=== PATIENT | female | born 1955 | race American Indian/Alaskan Native ===

== ENCOUNTER 2016-04-17 11:49 | Outpatient (CLI) | payer MEDICARE ==
--- NOTE | 2016-04-17 14:05 | XRay Report ---
The left index finger: AP and lateral views demonstrates a mild degree of soft tissue laceration along the lateral and palmar aspect of the digit. There is mild swelling. No foreign body identified. The bony structures are unremarkable. Impression: Soft tissue injury. No foreign body identified.
== END 2016-04-17 11:50 | disposition home or self-care (01) ==
LOC: XRAY 11:49
PROVIDERS: ATTEND Orthopaedic Surgery
DX: S60.45 Superficial foreign body of fingers (principal)

== ENCOUNTER 2016-04-28 10:57 | Outpatient (CLI) | payer MEDICARE ==
[2016-04-28] MEDS ORDERED: XYLOCAINE TOPICAL 2% TP ONE ×2 (11:36→13:50)
== END 2016-04-28 10:58 | disposition home or self-care (01) ==
LOC: WOUND 10:57
PROVIDERS: ATTEND Orthopaedic Surgery
DX: L97.811 Non-pressure chronic ulcer of other part of right lower leg limited to breakdown of skin (principal); I73.9 Peripheral vascular disease, unspecified; I10 Essential (primary) hypertension; Z87.891 Personal history of nicotine dependence

== ENCOUNTER 2016-05-12 11:05 | Outpatient (CLI) | payer MEDICARE ==
[2016-05-12] MEDS ORDERED: XYLOCAINE TOPICAL 2% TP ONE ×3 (11:21→13:52)
[2016-05-12] MEDS ORDERED: XYLOCAINE TOPICAL 2% ONE (11:36)
[2016-05-12] MEDS ORDERED: SILVER NITRATE TP ONE ×2 (12:52→13:52)
== END 2016-05-12 11:06 | disposition home or self-care (01) ==
LOC: WOUND 11:05
PROVIDERS: ATTEND Internal Medicine
DX: I87.311 Chronic venous hypertension (idiopathic) with ulcer of right lower extremity (principal); L97.811 Non-pressure chronic ulcer of other part of right lower leg limited to breakdown of skin; L02.512 Cutaneous abscess of left hand; F06.4 Anxiety disorder due to known physiological condition; I87.2 Venous insufficiency (chronic) (peripheral); Z87.891 Personal history of nicotine dependence
CPT/HCPCS: 88304

== ENCOUNTER 2016-05-15 10:41 | Outpatient (CLI) | payer MEDICARE ==
[2016-05-15] MEDS ORDERED: NACL 0.9% 500 ML IR ONE (10:50)
[2016-05-15] MEDS ORDERED: NACL 0.9% IR ONE (14:28)
== END 2016-05-15 10:42 | disposition home or self-care (01) ==
LOC: WOUND 10:41
PROVIDERS: ATTEND Internal Medicine
DX: I87.311 Chronic venous hypertension (idiopathic) with ulcer of right lower extremity (principal); L97.811 Non-pressure chronic ulcer of other part of right lower leg limited to breakdown of skin; I87.2 Venous insufficiency (chronic) (peripheral); I10 Essential (primary) hypertension; F06.4 Anxiety disorder due to known physiological condition; I73.9 Peripheral vascular disease, unspecified; Z87.891 Personal history of nicotine dependence
CPT/HCPCS: 29581

== ENCOUNTER 2016-05-19 11:14 | Outpatient (CLI) | payer MEDICARE ==
[2016-05-19] MEDS ORDERED: XYLOCAINE TOPICAL 2% TP ONE (12:07)
[2016-05-19] MEDS ORDERED: NACL 0.9% 500 ML IR ONE (12:08)
[2016-05-19] MEDS ORDERED: NACL 0.9% IR PRN (15:10)
== END 2016-05-19 11:15 | disposition home or self-care (01) ==
LOC: WOUND 11:14
PROVIDERS: ATTEND Internal Medicine
DX: I87.311 Chronic venous hypertension (idiopathic) with ulcer of right lower extremity (principal); L97.811 Non-pressure chronic ulcer of other part of right lower leg limited to breakdown of skin; I87.2 Venous insufficiency (chronic) (peripheral); I10 Essential (primary) hypertension; F06.4 Anxiety disorder due to known physiological condition; I73.9 Peripheral vascular disease, unspecified; Z87.891 Personal history of nicotine dependence
CPT/HCPCS: 99213; G0463

== ENCOUNTER 2016-05-26 11:40 | Outpatient (CLI) | payer MEDICARE ==
[2016-05-26] MEDS ORDERED: XYLOCAINE TOPICAL 4% TP ONE ×2 (12:25→12:46)
[2016-05-26] MEDS ORDERED: SILVER NITRATE TP ONE (12:57)
== END 2016-05-26 11:41 | disposition home or self-care (01) ==
LOC: WOUND 11:40
PROVIDERS: ATTEND Internal Medicine
DX: I87.311 Chronic venous hypertension (idiopathic) with ulcer of right lower extremity (principal); L97.811 Non-pressure chronic ulcer of other part of right lower leg limited to breakdown of skin; F06.4 Anxiety disorder due to known physiological condition; I73.9 Peripheral vascular disease, unspecified; Z87.891 Personal history of nicotine dependence

== ENCOUNTER 2017-02-23 14:02 | Emergency (ER) | payer MEDICARE ==
--- NOTE | 2017-02-23 14:20 | Emergency Department Report ---
Chief Complaint: Extremity Injury, Lower Stated Complaint: RT FOOT PAIN Time Seen by Provider: 02/23/17 14:18 - HPI History of Present Illness: Patient here reports that she is having in her right leg and foot pain that is 10 out of 10. Patient states that she has venous stasis ulcers and poor circulation and she's been having new ulcers on her foot and her leg that is not healing. She said her vascular surgeon is Dr. Emerson and her plastic surgeon is Dr. Elias [place] who did skin graft on her and November 2016. Patient says she has not taken her temperature but she feels like she has chills. She says she's been taking ibuprofen and it is not helping. Patient states that she also went to wound care. She said now she lost [employer] because her insurance ran out. She has a history of high blood pressure are none blood pressure medication blood pressure is 164/106 and she denies any shortness of breath or chest pain. Patient has history of smoking - ROS Review of Systems: All systems are negative unless stated in HPI above - Exam Vital Signs: Vital Signs 02/23/17 14:07 Temperature 98.0 F Pulse Rate 77 Respiratory 17 Rate Blood Pressure 164/106 O2 Sat by Pulse 100 Oximetry Physical Exam: General: This is a 61-year-old female well-nourished well-developed in no acute distress Extremity: Patient with discolored area from her right mid leg to her foot. Ulcers noted to dorsal aspect of anterior foot with scabbing. Patient has ulcers to mid to distal right leg. Areas are draining. Right DP and PT palpable but faint. Her foot feels warm. Pigmentation of her foot is darker than her usual pigmentation. No swelling noted. And she denies any MSE screening note: Focused history and physical exam performed. Due to findings the following was ordered: ED Medical Decision Making - Medical Decision Making MDM: Patient screened by provider in triage area. Appropriate protocol initiated and patient to be seen in main ED by ED Disposition for MSE Condition: Stable
[2017-02-23 15:05] LABS: Basophils % (Auto) 1.2 % (0.0-1.8); Eosinophils % (Auto) 3.1 % (0.0-4.3); Hematocrit 37.7 % (30.3-42.9); Hemoglobin 12.1 gm/dl (10.1-14.3); Mean Corpuscular HGB Conc 32 % (30-34); Mean Corpuscular Hemoglobin 29 pg (28-32); Mean Corpuscular Volume 89 fl (79-97); Platelet Count 446 K/mm3 (140-440); Red Blood Count 4.25 M/mm3 (3.65-5.03); Red Cell Distribution Width 14.9 % (13.2-15.2); White Blood Count 6.6 K/mm3 (4.5-11.0)
[2017-02-23 15:16] LABS: INR 1.01 (0.87-1.13)
[2017-02-23 15:17] LABS: Partial Thromboplastin Time 27.5 Sec. (24.2-36.6)
[2017-02-23 15:18] LABS: Alanine Aminotransferase 7 units/L (7-56); Albumin 4.4 g/dL (3.9-5); Albumin/Globulin Ratio 1.3 %; Alkaline Phosphatase 119 units/L (35-129); Anion Gap 21 mmol/L; BUN/Creatinine Ratio 17; Blood Urea Nitrogen 19 mg/dL (7-17); Calcium 9.4 mg/dL (8.4-10.2); Carbon Dioxide 19 mmol/L (22-30); Chloride 103.7 mmol/L (98-107); Glucose 83 mg/dL (65-100); Potassium 3.3 mmol/L (3.6-5.0); Sodium 140 mmol/L (137-145); Total Protein 7.8 g/dL (6.3-8.2)
--- NOTE | 2017-02-23 15:55 | XRay Report ---
Right foot 3 views. Findings: Right foot pain with cutaneous ulcerations. Findings: There is severe diffuse osteopenia. No fractures or dislocations are seen. There is no osteolytic destruction or other signs of osteomyelitis. There is no soft tissue swelling. Arthritic changes are seen at the tarsometatarsal joints. Impression: Diffuse osteopenia and arthritic changes, with no acute findings.
[2017-02-23] MEDS ORDERED: TRIPLE ANTIBIOTIC TP ONE (21:19)
[2017-02-23] MEDS ORDERED: DILAUDID IM ONE (22:51)
[2017-02-23] MEDS ORDERED: KEFLEX PO ONE (22:51)
--- NOTE | 2017-02-23 23:53 | Emergency Department Report ---
HPI - General Chief Complaint: Extremity Injury, Lower Time Seen by Provider: 02/23/17 14:18 - HPI HPI: The patient is a 61-year-old female with a history of chronic venous insufficiency and stasis ulcers of the right lower extremity, presents for evaluation of pain to the right leg. The patient reports recurrence of right lower extremity pain for the past 3 days, constant since onset, currently 9/10 in severity, throbbing in quality, exacerbated with ambulation. She denies trauma or new injuries to the right lower extremity. She states that she received dressing changes by wound care nurse one day ago. She denies fever, trauma to the right lower extremity, Drainage or discharge, paresthesia, or loss of motor function. ED Past Medical Hx - Past Medical History Hx Hypertension: Yes Hx Congestive Heart Failure: No Hx Diabetes: No Hx Asthma: No Hx COPD: No Hx HIV: No Additional medical history: Leg ulcer with vascular surgery, peripheral vascular disease - Surgical History Additional Surgical History: tonsillectomy; vascular surgery to RLE - Social History Smoking Status: Never Smoker Substance Use Type: None - Medications Home Medications: Home Medications Medication Instructions Recorded Confirmed Last Taken Type Gabapentin [Neurontin] 300 mg PO BID #60 tablet 05/03/15 05/22/16 1 Month Ago Rx Lisinopril [Zestril TAB] 40 mg PO QDAY 10/06/15 05/22/16 4 Days Ago History amLODIPine [Norvasc] 10 mg PO DAILY 10/06/15 05/22/16 4 Days Ago History Carvedilol [Coreg] 6.25 mg PO BID #60 tablet 12/24/15 05/22/16 Unknown Rx Mirtazapine [Remeron] 15 mg PO QHS #14 tablet 12/24/15 05/22/16 Unknown Rx Aspirin EC [Aspirin Enteric Coated 81 mg PO QDAY #30 tablet 05/23/16 Unknown Rx TAB] Clopidogrel [Plavix] 75 mg PO QDAY #30 tablet 05/23/16 Unknown Rx Famotidine [Pepcid] 20 mg PO BID #60 tablet 05/23/16 Unknown Rx HYDROcodone/APAP 7.5-325 [[place] 1 each PO Q6HR PRN #14 tablet 02/23/17 Unknown Rx 7.5-325 mg TAB] Sulfamethoxazole/Trimethoprim 1 each PO Q12HR #14 tablet 02/23/17 Unknown Rx [Bactrim DS TAB] ED Review of Systems ROS: Stated complaint: RT FOOT PAIN Other details as noted in HPI Constitutional: denies: fever ENT: denies: throat or neck pain Respiratory: denies: cough, shortness of breath Cardiovascular: denies: chest pain Endocrine: denies unexplained weight loss or gain Gastrointestinal: denies: abdominal pain, nausea Genitourinary: denies: dysuria Musculoskeletal: reports right leg pain denies: leg swelling Skin: denies: rash Neurological: denies: headache Hematological/Lymphatic: denies: easy bleeding or easy bruising Psych: denies sadness or hopelessness Physical Exam - Physical Exam Vital Signs: Vital Signs 02/23/17 02/23/17 14:07 20:30 Temperature 98.0 F 98.0 F Pulse Rate 77 67 Respiratory 17 20 Rate Blood Pressure 164/106 Blood Pressure 170/100 [Left] O2 Sat by Pulse 100 98 Oximetry Physical Exam: General: well-nourished, well-developed, no acute distress Head: Normocephalic, atraumatic Eyes: normal sclera ENT: Mucous membranes are pink and moist Neck: trachea midline, neck supple Respiratory: Breath sounds equal bilaterally, no wheezing, rales, or rhonchi Cardio: S1 and S2 present, no murmurs, rubs, gallops, capillary refill is brisk Abdomen: Normoactive bowel sounds, soft abdomen, no tenderness Musc: multiple large ruperficial ulcers of distal right lower leg present, surrounding tissue tender to palpation, mild clear drainage present to ulcer, no purulent drainage, no active bleeding, no fluctuance, No pitting edema, distal pulses in the right foot and tachycardia and brisk, capillary refill brisk in all toes, no sensation deficit in the foot or toes, no motor deficit in the foot or toes Neuro: no facial drooping, normal speech Psych: Normal affect ED Course Vital Signs 02/23/17 02/23/17 14:07 20:30 Temperature 98.0 F 98.0 F Pulse Rate 77 67 Respiratory 17 20 Rate Blood Pressure 164/106 Blood Pressure 170/100 [Left] O2 Sat by Pulse 100 98 Oximetry ED Medical Decision Making - Lab Data Result diagrams: 02/23/17 14:46 02/23/17 14:46 - Medical Decision Making The patient was seen and examined by myself. The patient is placed on a deckhand sponge boat and continuous pulse ox. On initial evaluation, the patient was found to be in no distress. Evaluation orders were placed. The patient is given IM pain medicine. X-ray of the right lower extremity and foot is negative for signs suggestive of acute infection, and also negative for acute fractures or dislocations. The patient was reevaluated and reported that their symptoms were markedly improved. The patient is stable for discharge with outpatient follow-up. The patient is given follow-up and return instructions. The patient expressed understanding and agreed with the plan. The patient is discharged in stable condition. Critical care attestation.: If time is entered above; I have spent that time in minutes in the direct care of this critically ill patient, excluding procedure time. ED Disposition Clinical Impression: Hypertensive urgency, Pain in right lower leg Ulcer of right lower extremity Qualifiers: Non-pressure ulcer stage: limited to breakdown of skin Qualified Code(s): L97.911 - Non-pressure chronic ulcer of unspecified part of right lower leg limited to breakdown of skin Disposition: DC-01 TO HOME OR SELFCARE Is pt being admited?: No Does the pt Need Aspirin: No Condition: Stable Instructions: Chronic Hypertension (ED), Stasis Dermatitis (ED), Pressure Ulcer (ED), Acute Wound Care (ED) Prescriptions: HYDROcodone/APAP 7.5-325 [[place] 7.5-325 mg TAB] 1 each PO Q6HR PRN #14 tablet PRN Reason: Pain Sulfamethoxazole/Trimethoprim [Bactrim DS TAB] 1 each PO Q12HR #14 tablet Referrals: LISA DE LEON MD [Primary Care Provider] - 3-5 Days KERRY GIRARD MD [Staff Physician] - 3-5 Days Time of Disposition: 23:46
[2017-02-24 00:13] VITALS: BP 156/98
--- NOTE | 2017-02-24 07:15 | XRay Report ---
Right tibia fibula: History: Right tibia fibula ulcer and pain. Findings: There is generalized osteopenia. No periosteal reaction or lytic lesion. No fracture. No soft tissue calcification. Impression: No evidence of periosteal reaction or lytic lesion.
== END 2017-02-24 00:11 | disposition home or self-care (01) ==
LOC: ED 14:02
DX: L97.911 Non-pressure chronic ulcer of unspecified part of right lower leg limited to breakdown of skin (principal); M79.604 Pain in right leg; I10 Essential (primary) hypertension
CPT/HCPCS: 36415; 73590; 73630; 80053; 85025; 85610; 85730; 96372; 99284; J1170; A6250

== ENCOUNTER 2017-03-10 17:20 | Inpatient (IN) | payer MEDICARE ==
[2017-03-10] MEDS ORDERED: PNEUMOVAX 23 IM ONE (18:39)
[2017-03-10] MEDS: NORVASC PO SCH (21:03)
[2017-03-10] MEDS: COZAAR PO SCH (21:03)
[2017-03-10] MEDS: DILAUDID IV PRN (22:34)
[2017-03-10] MEDS ORDERED: MILK OF MAGNESIA PO PRN (23:05)
[2017-03-10] MEDS ORDERED: TYLENOL PO PRN (23:05)
[2017-03-10] MEDS ORDERED: DULCOLAX PR PRN (23:05)
[2017-03-10] MEDS ORDERED: ZOFRAN IV PRN (23:05)
--- NOTE | 2017-03-10 23:05 | Event Note ---
Date: 03/10/17
[2017-03-10 23:40] LABS: Basophils % (Auto) 1.1 % (0.0-1.8); Hematocrit 32.7 % (30.3-42.9); Hemoglobin 10.6 gm/dl (10.1-14.3); Mean Corpuscular HGB Conc 33 % (30-34); Mean Corpuscular Hemoglobin 29 pg (28-32); Mean Corpuscular Volume 88 fl (79-97); Platelet Count 452 K/mm3 (140-440); Red Blood Count 3.71 M/mm3 (3.65-5.03); Red Cell Distribution Width 14.8 % (13.2-15.2); White Blood Count 9.5 K/mm3 (4.5-11.0)
[2017-03-10] MEDS ORDERED: APRESOLINE IV ONE (23:47)
[2017-03-10] MEDS: CLEOCIN 900 MG/50 mL 900 MG/50 ML BAG IV SCH (23:58)
[2017-03-10] MEDS: ZOFRAN IV PRN (23:59)
[2017-03-10] MEDS: NACL 0.9% 1000 ML 1,000 ML IV SCH (23:59)
[2017-03-11 00:05] LABS: Alanine Aminotransferase 7 units/L (7-56); Albumin 3.8 g/dL (3.9-5); Albumin/Globulin Ratio 1.2 %; Alkaline Phosphatase 108 units/L (35-129); Anion Gap 17 mmol/L; BUN/Creatinine Ratio 20; Bilirubin,Total < 0.20 mg/dL (0.1-1.2); Blood Urea Nitrogen 18 mg/dL (7-17); Calcium 8.9 mg/dL (8.4-10.2); Carbon Dioxide 20 mmol/L (22-30); Glucose 88 mg/dL (65-100); Potassium 3.1 mmol/L (3.6-5.0); Sodium 139 mmol/L (137-145)
[2017-03-11] MEDS ORDERED: APRESOLINE IV PRN (00:30)
[2017-03-11] MEDS: NORCO 7.5/325 PO PRN ×4 (04:32→23:51)
[2017-03-11] MEDS ORDERED: K-DUR PO ONE ×2 (06:47→10:00)
[2017-03-11] MEDS ORDERED: MOTRIN PO PRN (06:49)
[2017-03-11 06:51] LABS: Eosinophils % (Auto) 1.9 % (0.0-4.3); Hemoglobin 11.2 gm/dl (10.1-14.3); Mean Corpuscular HGB Conc 32 % (30-34); Mean Corpuscular Hemoglobin 29 pg (28-32); Mean Corpuscular Volume 90 fl (79-97); Platelet Count 473 K/mm3 (140-440); Red Cell Distribution Width 15.3 % (13.2-15.2)
[2017-03-11] MEDS: CLEOCIN 900 MG/50 mL 900 MG/50 ML BAG IV SCH ×3 (07:04→22:22)
[2017-03-11 07:05] LABS: Alanine Aminotransferase 8 units/L (7-56); Albumin/Globulin Ratio 1.3 %; Alkaline Phosphatase 111 units/L (35-129); Anion Gap 22 mmol/L; BUN/Creatinine Ratio 19; Blood Urea Nitrogen 15 mg/dL (7-17); Calcium 9.1 mg/dL (8.4-10.2); Carbon Dioxide 18 mmol/L (22-30); Chloride 105.7 mmol/L (98-107); Glucose 112 mg/dL (65-100); Potassium 3.3 mmol/L (3.6-5.0); Sodium 142 mmol/L (137-145); Total Protein 7.1 g/dL (6.3-8.2)
[2017-03-11] MEDS: DILAUDID IV PRN (07:08)
[2017-03-11] MEDS: COZAAR PO SCH (09:49)
[2017-03-11] MEDS: NORVASC PO SCH (09:49)
[2017-03-11] MEDS: PEPCID PO SCH ×2 (09:49→22:22)
[2017-03-11] MEDS: NEURONTIN PO SCH ×2 (09:49→22:22)
[2017-03-11] MEDS ORDERED: PEPCID PO SCH (10:00)
[2017-03-11] MEDS ORDERED: NON-FORMULARY (Gabapentin [Neurontin] 300 MG) PO SCH (10:00)
--- NOTE | 2017-03-11 10:21 | History and Physical Report ---
CHIEF COMPLAINT: Wounds on the right leg and the foot. HISTORY OF PRESENT ILLNESS: The patient has a wound on the right leg and right foot for 3 weeks, nonhealing. Also, the patient complains of severe pain in the foot and also drainage from the wound on the right foot. The patient has had a skin flap by Dr. Lau. She has a small opening wound on the right leg, it was 3 cm x 3 cm and also a superficial ulcer with some drainage on the dorsum of the right foot, 3 cm x 3 cm with a depth of 0.2 mm. No fever, no chills. PAST MEDICAL HISTORY: Significant for atherosclerosis of the right leg, acute renal failure, hypertension, and atherosclerotic heart disease. PAST SURGICAL HISTORY: Perm-A-Cath placement in 12/2015 and atherectomy and angioplasty, right leg. Atherectomy in 2014 and atherectomy and angioplasty, right leg in 2016. SOCIAL HISTORY: The patient used to smoke, stopped smoking, nondrinker. The patient is legally . FAMILY HISTORY: Mother has cancer. Aunt has vascular problems. ALLERGIES: No known drug allergies. CURRENT MEDICATIONS: Silvadene ointment, [place] 7.5/325 q.i.d. p.r.n., probiotic 250 mg q.i.d. Bactrim and Augmentin recently prescribed, losartan 25 mg once a day, amlodipine 10 mg once a day, and ibuprofen 800 mg 3 times a day. REVIEW OF SYSTEMS: Significant for pain in the right lower extremity secondary to the ulcer and also the right foot pain is about 8/10. Able to walk. Otherwise, review of systems is essentially negative. A 14-point review of systems done. PHYSICAL EXAMINATION: GENERAL: Elderly female, cooperative during examination. VITAL SIGNS: Blood pressure is 172/99 and 176/105, temperature is 98.5, pulse is 64, and respirations are 18. HEENT: Unremarkable. Pupils are equal and reactive. NECK: Supple, no lymphadenopathy, no thyromegaly. LUNGS: Clear to auscultation and percussion. Good air entry. CARDIOVASCULAR: S1, S2 heard. No gallop, no murmur, no rub. Apical impulse in left fifth intercostal space and midclavicular line. ABDOMEN: Soft and benign. No hepatosplenomegaly, no guarding, no rigidity. Hernial orifices are normal. EXTREMITIES: Right leg ulcer on the lateral aspect of the lower part of the calf region just above the lateral malleolus 3 cm x 3 cm also present with a depth of about 2 mm. Also, ulcer present the right foot, 3 cm x 3 cm with a depth of 1 mm. Slight oozing present on both the wounds. CENTRAL NERVOUS SYSTEM: Alert and oriented x 4. SKIN: Other than the wound description is normal. LABORATORY DATA: Significant for white count of 9500, H and H of 10.6 and 32.7, and platelet count of 452,000. Sodium is 139, potassium is 3.1, chloride is 105, bicarb is 20, BUN and creatinine are 18 and 0.9, and albumin is 3.8. ASSESSMENT AND PLAN: 1. Right foot ulcer and right leg ulcer. Wound care and the patient to be started on IV antibiotics. The patient was started on clindamycin 900 mg q.8 h. We will take the help of Infectious Disease. We will consult Dr. Cardenas. 2. Hypertension. Continue carvedilol 6.25 twice a day 3. Peripheral artery disease. The patient is on Plavix 75 mg once a day. Vascular Surgery consult also will be requested. 4. Gastroesophageal reflux disease. Famotidine 20 mg twice a day. 5. Peripheral neuropathy. Continue gabapentin 600 mg twice a day. 6. Deep venous thrombosis prophylaxis, Lovenox 40 mg subcutaneous daily. JOB# [id number] VSM/NTS
--- NOTE | 2017-03-11 10:37 | Event Note ---
Date: 03/11/17 Arterial duplex and noninvasive arterial testing has been ordered. A full consult will be dictated after these are performed.
[2017-03-11] MEDS ORDERED: Fluarix Quad 2017-2018(36 MOS+ IM ONE (12:00)
[2017-03-11] MEDS: ZOFRAN IV PRN ×2 (13:31→22:21)
--- NOTE | 2017-03-11 13:47 | Consultation ---
History of Present Illness - Reason for Consult Consult date: 03/11/17 - History of Present Illness This is a 61-year-old female admitted from our office via Dr. Emerson. Her current complaint is right foot pain, especially upon weightbearing. She said this has been an ongoing issue for several days. In May of this year, she underwent right lower extremity angiography with directional atherectomy and drug coated balloon angioplasty of the right superficial femoral artery. She stated that her wounds improved after the procedure. She denies fevers at home, although she said she has had slight chills every now and then. She feels well otherwise. She is currently on aspirin and Plavix for antiplatelet therapy. Arterial duplex demonstrates largely multiphasic waveforms in all evaluated arteries of the right lower extremity. Additionally, her ankle-brachial index on the right is 0.91 and her toe brachial index is 0.83. Medications and Allergies Allergies Allergy/AdvReac Type Severity Reaction Status Date / Time tramadol AdvReac Unknown Verified 07/05/15 14:55 Home Medications Medication Instructions Recorded Confirmed Last Taken Type Gabapentin [Neurontin] 300 mg PO BID #60 tablet 05/03/15 05/22/16 6 Months Ago Rx ~09/07/16 Lisinopril [Zestril TAB] 40 mg PO QDAY 10/06/15 05/22/16 1 Month Ago History ~02/07/17 amLODIPine [Norvasc] 10 mg PO DAILY 10/06/15 03/10/17 1 Day Ago History ~03/09/17 Carvedilol [Coreg] 6.25 mg PO BID #60 tablet 12/24/15 05/22/16 3 Months Ago Rx ~12/08/16 Mirtazapine [Remeron] 15 mg PO QHS #14 tablet 12/24/15 05/22/16 Unknown Rx Aspirin EC [Aspirin Enteric Coated 81 mg PO QDAY #30 tablet 05/23/16 3 Months Ago Rx TAB] ~12/08/16 Clopidogrel [Plavix] 75 mg PO QDAY #30 tablet 05/23/16 1 Year Ago Rx ~03/10/16 Famotidine [Pepcid] 20 mg PO BID #60 tablet 05/23/16 Unknown Rx HYDROcodone/APAP 7.5-325 [[place] 1 each PO Q6HR PRN #14 tablet 02/23/17 03/10/17 1 Day Ago Rx 7.5-325 mg TAB] ~03/09/17 Sulfamethoxazole/Trimethoprim 1 each PO Q12HR #14 tablet 02/23/17 03/10/17 1 Day Ago Rx [Bactrim DS TAB] ~03/09/17 Ibuprofen [Motrin 800 MG tab] 800 mg PO 03/10/17 2 Days Ago History ~03/08/17 Losartan [Cozaar] 25 mg PO QDAY 03/10/17 03/10/17 1 Day Ago History ~03/09/17 Active Meds: Active Medications Acetaminophen (Tylenol) 650 mg PO Q4H PRN PRN Reason: Pain MILD(1-3)/Fever >100.5/[place] Acetaminophen/Hydrocodone Bitart ([place] 7.5/325) 1 each PO Q6H PRN PRN Reason: Pain, Moderate (4-6) Last Admin: 03/11/17 09:56 Dose: 1 each Amlodipine Besylate (Norvasc) 10 mg PO QDAY [facility] Last Admin: 03/11/17 09:49 Dose: 10 mg Bisacodyl (Dulcolax) 10 mg [place] QDAY PRN PRN Reason: Constipation unrelieved by MOM Famotidine (Pepcid) 20 mg PO BID [facility] Last Admin: 03/11/17 09:49 Dose: 20 mg Gabapentin (Neurontin) 300 mg PO BID [facility] Last Admin: 03/11/17 09:49 Dose: 300 mg Hydralazine HCl (Apresoline) 10 mg IV Q4HR PRN PRN Reason: Increased Blood Pressure Hydromorphone HCl (Dilaudid) 1 mg IV Q4H PRN PRN Reason: Pain , Severe (7-10) Last Admin: 03/11/17 07:08 Dose: 1 mg Sodium Chloride (Nacl 0.9% 1000 Ml) 1,000 mls @ 75 mls/hr IV DIRECT [facility] Last Admin: 03/10/17 23:59 Dose: 75 mls/hr Clindamycin HCl (Cleocin 900 Mg/50 Ml) 900 mg in 50 mls @ 100 mls/hr IV Q8HR CHA PRN Reason: Protocol Last Admin: 03/11/17 13:30 Dose: 100 mls/hr Ibuprofen (Motrin) 800 mg PO Q8H PRN PRN Reason: Pain, Moderate (4-6) Losartan Potassium (Cozaar) 25 mg PO QDAY CHA Last Admin: 03/11/17 09:49 Dose: 25 mg Magnesium Hydroxide (Milk Of Magnesia) 30 ml PO Q4H PRN PRN Reason: Constipation Ondansetron HCl (Zofran) 4 mg IV Q4H PRN PRN Reason: Nausea And Vomiting Last Admin: 03/11/17 13:31 Dose: 4 mg Exam - Constitutional Vitals: Temp Pulse Resp BP Pulse Ox 98.3 F 96 H 18 140/94 96 03/11/17 08:00 03/11/17 08:00 03/11/17 08:00 03/11/17 08:00 03/11/17 08:00 General appearance: Present: no acute distress, well-nourished - EENT Eyes: Present: PERRL ENT: hearing intact, clear oral mucosa - Neck Neck: Present: supple, normal ROM - Respiratory Respiratory effort: normal - Extremities Extremities: normal temperature Extremity abnormal: ulceration (the right dorsalis pedis pulses palpable. On the dorsum of the distal right foot, there is a large ulcerated lesion. It is currently covered in ointment applied by wound care, please refer to file photos for further detail.) Results - Labs CBC & Chem 7: 03/11/17 06:18 03/11/17 06:18 Labs: Abnormal lab results 03/10/17 03/10/17 03/11/17 Range/Units 23:10 23:10 06:18 RDW 15.3 H (13.2-15.2) % Plt Count 452 H 473 H (140-440) K/mm3 [place] % (Auto) 7.9 H (0.0-7.3) % Potassium 3.1 L (3.6-5.0) mmol/L Carbon Dioxide 20 L (22-30) mmol/L BUN 18 H (7-17) mg/dL Glucose (65-100) mg/dL C-Reactive Protein (0.00-1.30) mg/dL Albumin 3.8 L (3.9-5) g/dL 03/11/17 03/11/17 Range/Units 06:18 06:18 RDW (13.2-15.2) % Plt Count (140-440) K/mm3 [place] % (Auto) (0.0-7.3) % Potassium 3.3 L (3.6-5.0) mmol/L Carbon Dioxide 18 L (22-30) mmol/L BUN (7-17) mg/dL Glucose 112 H (65-100) mg/dL C-Reactive Protein 1.50 H (0.00-1.30) mg/dL Albumin (3.9-5) g/dL - Imaging and Cardiology Venous US: report reviewed, image reviewed Assessment and Plan Based on her physical exam and noninvasive arterial evaluation, it is very unlikely that her right foot wound issues are due to insufficient perfusion. The etiology of the wound is uncertain. Evaluation by podiatry and wound care is recommended in order to further advise regarding wound care and determining etiology of this lesion, in light of satisfactory perfusion. Given that she has been afebrile, currently does not have a white count, and her wound does not have a foul odor, infection is less likely. She states she is amenable to outpatient wound care, and this is being set up currently. In the meantime, she should continue her antiplatelet therapy.
--- NOTE | 2017-03-11 13:56 | Consultation ---
History of Present Illness - Reason for Consult Consult date: 03/11/17 wound Requesting physician: MOISES SANCHEZ - History of Present Illness 61 years old female with history of PVD and right leg venous insufficiency with right leg chronic wound which required skin grafting back in June 2016, she underwent right lower extremity angiography with directional atherectomy and drug coated balloon angioplasty of the right superficial femoral artery, after those procedures wounds healed; admitted on 03/10/17 due to new ulceration on the right dorsal forefoot. Denies any trauma or injury. She noticed a skin break. Ulceration started draining foul-smelling secretion. She has not been able to bear weight on the foot. Patient denies any fever or chills, nausea, vomiting or diarrhea. In the emergency room, initial temperature was 97.9, initial white count 9.5. Arterial duplex demonstrates largely multiphasic waveforms in all evaluated arteries of the right lower extremity. Additionally, her ankle-brachial index on the right is 0.91 and her toe brachial index is 0.83. Microbiology: none Current Antimicrobials: clinda Previous Antimicrobials: Past History Past Medical History: other (PVD, venous insuficiency) Past Surgical History: Other (right leg skin graft) Medications and Allergies Allergies Allergy/AdvReac Type Severity Reaction Status Date / Time tramadol AdvReac Unknown Verified 07/05/15 14:55 Home Medications Medication Instructions Recorded Confirmed Last Taken Type Gabapentin [Neurontin] 300 mg PO BID #60 tablet 05/03/15 05/22/16 6 Months Ago Rx ~09/07/16 Lisinopril [Zestril TAB] 40 mg PO QDAY 10/06/15 05/22/16 1 Month Ago History ~02/07/17 amLODIPine [Norvasc] 10 mg PO DAILY 10/06/15 03/10/17 1 Day Ago History ~03/09/17 Carvedilol [Coreg] 6.25 mg PO BID #60 tablet 12/24/15 05/22/16 3 Months Ago Rx ~12/08/16 Mirtazapine [Remeron] 15 mg PO QHS #14 tablet 12/24/15 05/22/16 Unknown Rx Aspirin EC [Aspirin Enteric Coated 81 mg PO QDAY #30 tablet 05/23/16 3 Months Ago Rx TAB] ~12/08/16 Clopidogrel [Plavix] 75 mg PO QDAY #30 tablet 05/23/16 1 Year Ago Rx ~03/10/16 Famotidine [Pepcid] 20 mg PO BID #60 tablet 05/23/16 Unknown Rx HYDROcodone/APAP 7.5-325 [[place] 1 each PO Q6HR PRN #14 tablet 02/23/17 03/10/17 1 Day Ago Rx 7.5-325 mg TAB] ~03/09/17 Sulfamethoxazole/Trimethoprim 1 each PO Q12HR #14 tablet 02/23/17 03/10/17 1 Day Ago Rx [Bactrim DS TAB] ~03/09/17 Ibuprofen [Motrin 800 MG tab] 800 mg PO 03/10/17 2 Days Ago History ~03/08/17 Losartan [Cozaar] 25 mg PO QDAY 03/10/17 03/10/17 1 Day Ago History ~03/09/17 Active Meds: Active Medications Acetaminophen (Tylenol) 650 mg PO Q4H PRN PRN Reason: Pain MILD(1-3)/Fever >100.5/[place] Acetaminophen/Hydrocodone Bitart ([place] 7.5/325) 1 each PO Q6H PRN PRN Reason: Pain, Moderate (4-6) Last Admin: 03/11/17 09:56 Dose: 1 each Amlodipine Besylate (Norvasc) 10 mg PO QDAY [facility] Last Admin: 03/11/17 09:49 Dose: 10 mg Bisacodyl (Dulcolax) 10 mg [place] QDAY PRN PRN Reason: Constipation unrelieved by MOM Famotidine (Pepcid) 20 mg PO BID [facility] Last Admin: 03/11/17 09:49 Dose: 20 mg Gabapentin (Neurontin) 300 mg PO BID [facility] Last Admin: 03/11/17 09:49 Dose: 300 mg Hydralazine HCl (Apresoline) 10 mg IV Q4HR PRN PRN Reason: Increased Blood Pressure Hydromorphone HCl (Dilaudid) 1 mg IV Q4H PRN PRN Reason: Pain , Severe (7-10) Last Admin: 03/11/17 07:08 Dose: 1 mg Sodium Chloride (Nacl 0.9% 1000 Ml) 1,000 mls @ 75 mls/hr IV DIRECT [facility] Last Admin: 03/10/17 23:59 Dose: 75 mls/hr Clindamycin HCl (Cleocin 900 Mg/50 Ml) 900 mg in 50 mls @ 100 mls/hr IV Q8HR [facility] PRN Reason: Protocol Last Admin: 03/11/17 13:30 Dose: 100 mls/hr Ibuprofen (Motrin) 800 mg PO Q8H PRN PRN Reason: Pain, Moderate (4-6) Losartan Potassium (Cozaar) 25 mg PO QDAY [facility] Last Admin: 03/11/17 09:49 Dose: 25 mg Magnesium Hydroxide (Milk Of Magnesia) 30 ml PO Q4H PRN PRN Reason: Constipation Ondansetron HCl (Zofran) 4 mg IV Q4H PRN PRN Reason: Nausea And Vomiting Last Admin: 03/11/17 13:31 Dose: 4 mg Review of Systems All systems: negative (as per HPI rest negative) Physical Examination - Physical Exam Narrative exam: General appearance: Alert in NAD, conversant Eyes: anicteric sclerae, moist conjunctivae; no lid-lag; PERRLA HENT: Atraumatic; oropharynx clear Neck: Trachea midline; supple, no thyromegaly or lymphadenopathy Lungs: CTA CV: RRR, no murmurs Abdomen: Soft, non-tender; no masses or hepatosplenomegaly Extremities: right ankle old chronic skin changes and scattered skin openings no purulence. right dorsal forefoot area with large thick slough, very tender to palpation Skin: Normal temperature, turgor and texture; no rash, ulcers or subcutaneous nodules Psych: Appropriate affect, alert and oriented to person, place and time. Neuro: alert and oriented x 3. Moving all extermities Lines: No CVL / PICC - Constitutional Vitals: Vital Signs Temp Pulse Resp BP Pulse Ox 98.3 F 96 H 18 140/94 96 03/11/17 08:00 03/11/17 08:00 03/11/17 08:00 03/11/17 08:00 03/11/17 08:00 Temperature -Last 24 Hours Temperature 98.3 F Temperature 98.3 F Temperature 98.5 F Temperature 97.9 F Results - Labs CBC & Chem 7: 03/11/17 06:18 03/11/17 06:18 Labs: Abnormal lab results 03/10/17 03/10/17 03/11/17 Range/Units 23:10 23:10 06:18 RDW 15.3 H (13.2-15.2) % Plt Count 452 H 473 H (140-440) K/mm3 [place] % (Auto) 7.9 H (0.0-7.3) % Potassium 3.1 L (3.6-5.0) mmol/L Carbon Dioxide 20 L (22-30) mmol/L BUN 18 H (7-17) mg/dL Glucose (65-100) mg/dL C-Reactive Protein (0.00-1.30) mg/dL Albumin 3.8 L (3.9-5) g/dL 03/11/17 03/11/17 Range/Units 06:18 06:18 RDW (13.2-15.2) % Plt Count (140-440) K/mm3 [place] % (Auto) (0.0-7.3) % Potassium 3.3 L (3.6-5.0) mmol/L Carbon Dioxide 18 L (22-30) mmol/L BUN (7-17) mg/dL Glucose 112 H (65-100) mg/dL C-Reactive Protein 1.50 H (0.00-1.30) mg/dL Albumin (3.9-5) g/dL Assessment and Plan Assessment: 1) Right foot foot venous ulcer-possibly infected. No evidence of arterial stenosis per art US and vascular 2) History of extensive right calf venous ulcer s/p grafting 3) History of PVD Plan: -check CRP -obtain rehab director occupational therapist Dr teodoro lilly-may need OR debridement i view of severe pain -send wound cultures -add levaquin -continue clindamycin for now Thank you Dr Sanchez for your consultation, will follow up with you. Arminda Hogan MD Infectious Diseases Specialist [facility] ([facility]) M [phone] O [phone]
[2017-03-11] MEDS: LEVAQUIN 750MG/150ML 750 MG/150 ML BAG IV SCH (18:09)
--- NOTE | 2017-03-11 23:52 | Progress Note ---
Assessment and Plan - Patient Problems (1) Ulcer of right lower extremity Current Visit: No Status: Acute Qualifiers: Non-pressure ulcer stage: with fat layer exposed Qualified Code(s): L97.912 - Non-pressure chronic ulcer of unspecified part of right lower leg with fat layer exposed Plan to address problem: RLE non healing ulcer.Wound care ID and vascular surgery consulted On IV Levaquin and Clindamycin D/w Dr Cardenas.Natalie for possible Pseudomonas infection (2) PAD (peripheral artery disease) Current Visit: No Status: Chronic Plan to address problem: Vascular on follow up (3) Ulcer of leg, chronic, right Current Visit: No Status: Chronic Qualifiers: Non-pressure ulcer stage: limited to breakdown of skin Qualified Code(s): L97.911 - Non-pressure chronic ulcer of unspecified part of right lower leg limited to breakdown of skin Plan to address problem: Wound care (4) HTN (hypertension) Current Visit: Yes Status: Chronic Qualifiers: Hypertension type: essential hypertension Qualified Code(s): I10 - Essential (primary) hypertension Plan to address problem: Cont antihypertensives (5) DVT prophylaxis Current Visit: No Status: Acute Plan to address problem: on lovenox Subjective Date of service: 03/11/17 Principal diagnosis: RLE Ulcers X 2 Interval history: This is a 61-year-old female admitted from Dr. Emerson's office. Her current complaint is right foot pain, especially upon weightbearing. She said this has been an ongoing issue for several days. In May of this year, she underwent right lower extremity angiography with directional atherectomy and drug coated balloon angioplasty of the right superficial femoral artery. She stated that her wounds improved after the procedure. She denies fevers at home, although she said she has had slight chills every now and then. She feels well otherwise. She is currently on aspirin and Plavix for antiplatelet therapy. Arterial duplex demonstrates largely multiphasic waveforms in all evaluated arteries of the right lower extremity. Additionally, her ankle-brachial index on the right is 0.91 and her toe brachial index is 0.83. Objective - Constitutional Vitals: Vital Signs - 12hr 03/11/17 03/11/17 17:03 20:29 Temperature 98.5 F Pulse Rate 64 Respiratory 20 20 Rate Blood Pressure 139/85 O2 Sat by Pulse 98 Oximetry General appearance: Present: no acute distress, well-nourished - EENT Eyes: PERRL, EOM intact ENT: hearing intact, clear oral mucosa Ears: bilateral: normal - Neck Neck: supple, normal ROM - Respiratory Respiratory effort: normal Respiratory: bilateral: CTA - Breasts Breasts: normal - Cardiovascular Rhythm: regular Heart Sounds: Present: S1 & S2. Absent: gallop, rub Extremities: pulses intact, No edema, Full ROM, abnormal Extremity abnormal: other (3 cm x3cm ulcer with eschar anterior lower tibial portion.Had skin flap which is intact.3cm x 2cm ulcer on dorsum of foot non healing.Serous drainage) - Gastrointestinal General gastrointestinal: Present: soft, non-tender, non-distended, normal bowel sounds - Genitourinary Female genitourinary: normal - Integumentary Integumentary: clear, warm, dry - Musculoskeletal Musculoskeletal: 1, strength equal bilaterally - Neurologic Neurologic: moves all extremities - Psychiatric Psychiatric: memory intact, appropriate mood/affect, intact judgment & insight - Labs CBC & Chem 7: 03/11/17 06:18 03/11/17 06:18 Labs: Abnormal lab results 03/10/17 03/11/17 03/11/17 Range/Units 23:10 06:18 06:18 RDW 15.3 H (13.2-15.2) % Plt Count 473 H (140-440) K/mm3 Potassium 3.1 L 3.3 L (3.6-5.0) mmol/L Carbon Dioxide 20 L 18 L (22-30) mmol/L BUN 18 H (7-17) mg/dL Glucose 112 H (65-100) mg/dL C-Reactive Protein (0.00-1.30) mg/dL Albumin 3.8 L (3.9-5) g/dL 03/11/17 03/11/17 Range/Units 06:18 14:24 RDW (13.2-15.2) % Plt Count (140-440) K/mm3 Potassium (3.6-5.0) mmol/L Carbon Dioxide (22-30) mmol/L BUN (7-17) mg/dL Glucose (65-100) mg/dL C-Reactive Protein 1.50 H 1.60 H (0.00-1.30) mg/dL Albumin (3.9-5) g/dL
[2017-03-12] MEDS: CLEOCIN 900 MG/50 mL 900 MG/50 ML BAG IV SCH ×5 (06:41→21:49)
[2017-03-12] MEDS: NORCO 7.5/325 PO PRN ×3 (06:50→20:54)
[2017-03-12] MEDS ORDERED: K-DUR PO NR (09:00)
[2017-03-12 09:47] LABS: Anion Gap 20 mmol/L; BUN/Creatinine Ratio 19; Blood Urea Nitrogen 17 mg/dL (7-17); Calcium 9.1 mg/dL (8.4-10.2); Carbon Dioxide 20 mmol/L (22-30); Chloride 101.5 mmol/L (98-107); Glucose 111 mg/dL (65-100); Potassium 3.5 mmol/L (3.6-5.0); Sodium 138 mmol/L (137-145)
--- NOTE | 2017-03-12 11:10 | Progress Note ---
Assessment and Plan Assessment: 1) Right foot venous ulcer - possibly infected. No evidence of arterial stenosis per art US and vascular. CRP=1.5 2) History of extensive right calf venous ulcer s/p grafting 3) History of PVD Plan: -obtain wound doctor consult Dr Latrell lilly - may need OR debridement in view of severe pain -send wound cultures -continue levaquin and clindamycin for now Thank you Dr Coulter for your consultation, will follow up with you. Arminda Hogan MD Infectious Diseases Specialist [facility] ([facility]) M [phone] O [phone] Subjective Date of service: 03/12/17 Principal diagnosis: RLE Ulcers X 2 Interval history: Still c/o severe right foot pain, no fever. Microbiology: none Current Antimicrobials: clinda 03/10 levaquin 03/11 Previous Antimicrobials: Objective - Exam Narrative Exam: General appearance: Alert in NAD, conversant Eyes: anicteric sclerae, moist conjunctivae; no lid-lag; PERRLA HENT: Atraumatic; oropharynx clear Neck: Trachea midline; supple, no thyromegaly or lymphadenopathy Lungs: CTA CV: RRR, no murmurs Abdomen: Soft, non-tender; no masses or hepatosplenomegaly Extremities: right ankle old chronic skin changes and scattered skin openings no purulence. right dorsal forefoot area with large thick slough, very tender to palpation Skin: Normal temperature, turgor and texture; no rash, ulcers or subcutaneous nodules Psych: Appropriate affect, alert and oriented to person, place and time. Neuro: alert and oriented x 3. Moving all extermities Lines: No CVL / PICC - Constitutional Vitals: Vital Signs Temp Pulse Resp BP Pulse Ox 98.2 F 70 18 145/98 98 03/12/17 07:17 03/12/17 07:17 03/12/17 07:17 03/12/17 07:17 03/12/17 07:17 Temperature -Last 24 Hours Temperature 98.2 F Temperature 98.4 F Temperature 98.5 F - Labs CBC & Chem 7: 03/11/17 06:18 03/12/17 09:16 Labs: Abnormal lab results 03/11/17 03/12/17 Range/Units 14:24 09:16 Potassium 3.5 L (3.6-5.0) mmol/L Carbon Dioxide 20 L (22-30) mmol/L Glucose 111 H (65-100) mg/dL C-Reactive Protein 1.60 H (0.00-1.30) mg/dL
[2017-03-12] MEDS: NEURONTIN PO SCH ×2 (11:46→21:37)
[2017-03-12] MEDS: COZAAR PO SCH (11:46)
[2017-03-12] MEDS: LEVAQUIN 750MG/150ML 750 MG/150 ML BAG IV SCH (11:46)
[2017-03-12] MEDS: NORVASC PO SCH (11:47)
[2017-03-12] MEDS: PEPCID PO SCH ×2 (11:47→21:36)
--- NOTE | 2017-03-12 14:31 | Progress Note ---
Assessment and Plan Assessment and plan: RLE ulcer Peripheral vascular disease - ID consulted and patient is on IV clindamycin and Levaquin - Vascular surgery consulted and her ABIs are okay and no vascular problem at this time - Dr. Sams consulted for debridement DVT prophylaxis - Heparin Disposition - Continue inpatient care, possible discharge after wound debridement. History Interval history: Patient was seen and evaluated this morning, complaining of severe right leg pain. Hospitalist Physical - Physical exam Narrative exam: Not in cardiopulmonary distress. The patient appeared well nourished and normally developed. Vital signs as documented. Head exam is unremarkable. No scleral icterus . Neck is without jugular venous distension, thyromegaly, or carotid bruits. Lungs are clear to auscultation. Cardiac exam reveals regular rate and Rhythm. First and second heart sounds normal. No murmurs, rubs or gallops. Abdominal exam reveals normal bowel sounds, no masses, no organomegaly and no aortic enlargement. Extremities clean dressing on the right leg. DIAMOND SETTER APPRENTICE: Alert and oriented 3. No focal weakness. - Constitutional Vitals: Temp Pulse Resp BP Pulse Ox 98.2 F 70 18 145/98 98 03/12/17 07:17 03/12/17 07:17 03/12/17 07:17 03/12/17 07:17 03/12/17 07:17 General appearance: Present: no acute distress, well-nourished Results - Labs CBC & Chem 7: 03/11/17 06:18 03/12/17 09:16 Labs: Laboratory Last Values WBC 8.0 K/mm3 (4.5-11.0) 03/11/17 06:18 RBC 3.90 M/mm3 (3.65-5.03) 03/11/17 06:18 Hgb 11.2 gm/dl (10.1-14.3) 03/11/17 06:18 Hct 35.0 % (30.3-42.9) 03/11/17 06:18 MCV 90 fl (79-97) 03/11/17 06:18 MCH 29 pg (28-32) 03/11/17 06:18 MCHC 32 % (30-34) 03/11/17 06:18 RDW 15.3 % (13.2-15.2) H 03/11/17 06:18 Plt Count 473 K/mm3 (140-440) H 03/11/17 06:18 Lymph % (Auto) 21.3 % (13.4-35.0) 03/11/17 06:18 [place] % (Auto) 7.2 % (0.0-7.3) 03/11/17 06:18 Eos % (Auto) 1.9 % (0.0-4.3) 03/11/17 06:18 Baso % (Auto) 1.0 % (0.0-1.8) 03/11/17 06:18 Lymph # 1.7 K/mm3 (1.2-5.4) 03/11/17 06:18 [place] # 0.6 K/mm3 (0.0-0.8) 03/11/17 06:18 Eos # 0.1 K/mm3 (0.0-0.4) 03/11/17 06:18 Baso # 0.1 K/mm3 (0.0-0.1) 03/11/17 06:18 Seg Neutrophils % 68.6 % (40.0-70.0) 03/11/17 06:18 Seg Neutrophils # 5.5 K/mm3 (1.8-7.7) 03/11/17 06:18 Sodium 138 mmol/L (137-145) 03/12/17 09:16 Potassium 3.5 mmol/L (3.6-5.0) L 03/12/17 09:16 Chloride 101.5 mmol/L (98-107) 03/12/17 09:16 Carbon Dioxide 20 mmol/L (22-30) L 03/12/17 09:16 Anion Gap 20 mmol/L 03/12/17 09:16 BUN 17 mg/dL (7-17) 03/12/17 09:16 Creatinine 0.9 mg/dL (0.7-1.2) 03/12/17 09:16 Estimated GFR > 60 ml/min 03/12/17 09:16 BUN/Creatinine Ratio 19 % 03/12/17 09:16 Glucose 111 mg/dL (65-100) H 03/12/17 09:16 Hemoglobin A1c 5.4 % (4-6) 03/10/17 23:10 Calcium 9.1 mg/dL (8.4-10.2) 03/12/17 09:16 Total Bilirubin 0.20 mg/dL (0.1-1.2) 03/11/17 06:18 AST 16 units/L (5-40) 03/11/17 06:18 ALT 8 units/L (7-56) 03/11/17 06:18 Alkaline Phosphatase 111 units/L (35-129) 03/11/17 06:18 C-Reactive Protein 1.60 mg/dL (0.00-1.30) H 03/11/17 14:24 Total Protein 7.1 g/dL (6.3-8.2) 03/11/17 06:18 Albumin 4.0 g/dL (3.9-5) 03/11/17 06:18 Albumin/Globulin Ratio 1.3 % 03/11/17 06:18
--- NOTE | 2017-03-12 19:27 | Consultation ---
History of Present Illness Consult date: 03/12/17 Reason for consult: other (Painful ulcerations of right leg and foot) - History of present illness History of present illness: 61 yo female with a several month h/o right leg ulcerations. She underwent STSG to these earlier this year with partial improvement. She has a 3 week h/o a painful ulceration on the dorsum of her right foot. She has noticed some drainage from this ulceration. She does not have DM. She has a h/o PVD of her RLE with her most recent RLE procedure being an angioplasty about 7 months ago. Past History Past Medical History: other (PVD, venous insuficiency) Past Surgical History: Other (right leg skin graft) Medications and Allergies Allergies Allergy/AdvReac Type Severity Reaction Status Date / Time tramadol AdvReac Unknown Verified 07/05/15 14:55 Home Medications Medication Instructions Recorded Confirmed Last Taken Type amLODIPine [Norvasc] 10 mg PO DAILY 10/06/15 03/10/17 1 Day Ago History ~03/09/17 HYDROcodone/APAP 7.5-325 [[place] 1 each PO Q6HR PRN #14 tablet 02/23/17 03/10/17 1 Day Ago Rx 7.5-325 mg TAB] ~03/09/17 Sulfamethoxazole/Trimethoprim 1 each PO Q12HR #14 tablet 02/23/17 03/10/17 1 Day Ago Rx [Bactrim DS TAB] ~03/09/17 Losartan [Cozaar] 25 mg PO QDAY 03/10/17 03/10/17 1 Day Ago History ~03/09/17 Active Meds: Active Medications Acetaminophen (Tylenol) 650 mg PO Q4H PRN PRN Reason: Pain MILD(1-3)/Fever >100.5/[place] Acetaminophen/Hydrocodone Bitart ([place] 7.5/325) 1 each PO Q6H PRN PRN Reason: Pain, Moderate (4-6) Last Admin: 03/12/17 13:58 Dose: 1 each Amlodipine Besylate (Norvasc) 10 mg PO QDAY [facility] Last Admin: 03/12/17 11:47 Dose: 10 mg Bisacodyl (Dulcolax) 10 mg [place] QDAY PRN PRN Reason: Constipation unrelieved by MOM Famotidine (Pepcid) 20 mg PO BID [facility] Last Admin: 03/12/17 11:47 Dose: 20 mg Gabapentin (Neurontin) 300 mg PO BID [facility] Last Admin: 03/12/17 11:46 Dose: 300 mg Hydralazine HCl (Apresoline) 10 mg IV Q4HR PRN PRN Reason: Increased Blood Pressure Hydromorphone HCl (Dilaudid) 1 mg IV Q4H PRN PRN Reason: Pain , Severe (7-10) Last Admin: 03/11/17 07:08 Dose: 1 mg Sodium Chloride (Nacl 0.9% 1000 Ml) 1,000 mls @ 75 mls/hr IV DIRECT [facility] Last Admin: 03/10/17 23:59 Dose: 75 mls/hr Clindamycin HCl (Cleocin 900 Mg/50 Ml) 900 mg in 50 mls @ 100 mls/hr IV Q8HR [facility] PRN Reason: Protocol Last Admin: 03/12/17 15:22 Dose: 100 mls/hr Levofloxacin/Dextrose (Levaquin 750mg/150ml) 750 mg in 150 mls @ 100 mls/hr IV Q24HR [facility] PRN Reason: Protocol Last Admin: 03/12/17 11:46 Dose: 100 mls/hr Ibuprofen (Motrin) 800 mg PO Q8H PRN PRN Reason: Pain, Moderate (4-6) Losartan Potassium (Cozaar) 25 mg PO QDAY [facility] Last Admin: 03/12/17 11:46 Dose: 25 mg Magnesium Hydroxide (Milk Of Magnesia) 30 ml PO Q4H PRN PRN Reason: Constipation Last Admin: 03/12/17 11:46 Dose: 30 ml Ondansetron HCl (Zofran) 4 mg IV Q4H PRN PRN Reason: Nausea And Vomiting Last Admin: 03/11/17 22:21 Dose: 4 mg Review of Systems All systems: negative Exam Vital Signs Temp Pulse Resp BP Pulse Ox 97.9 F 67 20 168/103 100 03/10/17 18:23 03/10/17 18:23 03/10/17 18:23 03/10/17 18:23 03/10/17 18:23 - General physical appearance Positive: well developed, well nourished, no distress - Eyes Positive: PERRL, normal occular movement - ENT Positive: normal pinna, normal nares, normal mucosa, no hearing loss, no congestion - Neck Positive: no masses, no bruits, trachea midline, no venous distension - Respiratory Positive: normal expansion, normal respiratory effort, clear to auscultation - Cardiovascular Rhythm: regular Heart Sounds: Present: S1 & S2. Absent: rub, click - Extremities Extremities: No edema, normal temperature (Right DP pulse is easily palpable. The right PT pulse is non-palpable.) - Breasts Breasts: deferred - Abdomen Abdomen: Present: soft, bowel sounds normal. Absent: tender, distended Hernia: none - Genitourinary Female Genitourinary: deferred - Integumentary other (There are several small superficial ulcerations of her right leg and a 3 cm ulceration over the dorsum of her right foot. This is partially covered with eschar but there is no appreciable underlying abscess.) - Neurologic Neurologic: alert and oriented to time, place and person, motor strength and sensation are grossly intact - Musculoskeletal normal gait, normal posture - Psychiatric Psychiatric: appropriate mood/affect, intact judgment & insight Results - Labs 03/11/17 06:18 03/12/17 09:16 Abnormal lab results 03/12/17 Range/Units 09:16 Potassium 3.5 L (3.6-5.0) mmol/L Carbon Dioxide 20 L (22-30) mmol/L Glucose 111 H (65-100) mg/dL Diabetes panel 03/12/17 Range/Units 09:16 Sodium 138 (137-145) mmol/L Potassium 3.5 L (3.6-5.0) mmol/L Chloride 101.5 (98-107) mmol/L Carbon Dioxide 20 L (22-30) mmol/L BUN 17 (7-17) mg/dL Creatinine 0.9 (0.7-1.2) mg/dL Glucose 111 H (65-100) mg/dL Calcium 9.1 (8.4-10.2) mg/dL Calcium panel 03/12/17 Range/Units 09:16 Calcium 9.1 (8.4-10.2) mg/dL Pituitary panel 03/12/17 Range/Units 09:16 Sodium 138 (137-145) mmol/L Potassium 3.5 L (3.6-5.0) mmol/L Chloride 101.5 (98-107) mmol/L Carbon Dioxide 20 L (22-30) mmol/L BUN 17 (7-17) mg/dL Creatinine 0.9 (0.7-1.2) mg/dL Glucose 111 H (65-100) mg/dL Calcium 9.1 (8.4-10.2) mg/dL Adrenal panel 03/12/17 Range/Units 09:16 Sodium 138 (137-145) mmol/L Potassium 3.5 L (3.6-5.0) mmol/L Chloride 101.5 (98-107) mmol/L Carbon Dioxide 20 L (22-30) mmol/L BUN 17 (7-17) mg/dL Creatinine 0.9 (0.7-1.2) mg/dL Glucose 111 H (65-100) mg/dL Calcium 9.1 (8.4-10.2) mg/dL Assessment and Plan - Patient Problems (1) Atherosclerosis of [place] arteries of the extremities with ulceration Current Visit: No Status: Acute Plan to address problem: 1) Continue local wound care 2) Check the results of the arterial dopplers of her RLE which were done yesterday. No report is back yet. 3) Keep her right leg and foot elevated at all times 4) Pt may need venous dopplers of her RLE
[2017-03-12] MEDS: NACL 0.9% 1000 ML 1,000 ML IV SCH (21:36)
[2017-03-13] MEDS: NORCO 7.5/325 PO PRN ×3 (03:31→16:15)
[2017-03-13] MEDS: CLEOCIN 900 MG/50 mL 900 MG/50 ML BAG IV SCH ×2 (05:07→14:06)
--- NOTE | 2017-03-13 07:38 | Vascular Lab Report ---
LOWER EXTREMITY ARTERIAL DUPLEX: REASON FOR EXAM: Peripheral arterial disease. COMMENTS ON THE RIGHT: Triphasic waveforms are seen proximally. Triphasic waveforms are seen distally. No significant velocity gradients are identified. No focal significant plaque is identified. Findings are consistent with normal perfusion. Findings are consistent with the ability to heal distal wounds. COMMENTS ON THE LEFT: Triphasic waveforms are seen proximally. Triphasic waveforms are seen distally. No significant velocity gradients are identified. No focal significant plaque is identified. Findings are consistent with normal perfusion. Findings are consistent with the ability to heal distal wounds. IMPRESSION: RIGHT: Essentially normal arterial flow. LEFT:Essentially normal arterial flow.
--- NOTE | 2017-03-13 07:39 | Vascular Lab Report ---
LOWER EXTREMITY ARTERIAL PHYSIOLOGIC STUDY: REASON FOR EXAM: Peripheral arterial disease. COMMENTS ON THE RIGHT: Ankle brachial index is 0.91. This value is abnormal. Toe brachial index is 0.83. This value is normal. Wound healing is likely. Pulse volume recording at the level of the ankle is normal. Exercise testing was not done. COMMENTS ON THE LEFT: Ankle brachial index is 0.84. This value is abnormal. Toe brachial index is 0.66. This value is normal. Wound healing is likely. Pulse volume recording at the level of the ankle is normal. Exercise testing was not done. IMPRESSION: RIGHT: Mild peripheral vascular disease LEFT:Mild peripheral vascular disease
[2017-03-13] MEDS: COZAAR PO SCH (10:06)
[2017-03-13] MEDS: LEVAQUIN 750MG/150ML 750 MG/150 ML BAG IV SCH (10:06)
[2017-03-13] MEDS: NEURONTIN PO SCH (10:06)
[2017-03-13] MEDS: PEPCID PO SCH (10:07)
[2017-03-13] MEDS: NORVASC PO SCH (10:07)
[2017-03-13] MEDS: NACL 0.9% 1000 ML 1,000 ML IV SCH (10:18)
--- NOTE | 2017-03-13 10:59 | Discharge Summary ---
Providers - Providers Date of Admission: 03/10/17 17:49 Date of discharge: 03/13/17 Attending physician: ÁNGEL CARUSO MD 03/10/17 Consult to Case Management [CONS] Routine Services Needed at Discharge: Home Health Services Notified:: 03/10/17 17:43 Consult to Physician [CONS] Routine Consulting Provider: MAN OLMEDO Reason For Exam: RT. FOOT WOUND INFECTION Place consult to:: DR. GONZALEZ Notified:: DR. GONZALEZ Comment:: WILL SEE PT IN AM 03/11/17 03/10/17 17:49 Consult to Physician [CONS] Routine Consulting Provider: EPI GARZA Reason For Exam: RT. FOOT WOUND INFECTION Place consult to:: DR. GARZA Notified:: DR. GARZA Phone number called:: [phone] Was contact made?: Yes If yes, spoke with:: JE Time called:: 18:54 Comment:: MINNA NOTIFIED 03/10/17 17:50 Consult to Physician [CONS] Routine Consulting Provider: SRAVANTHI BARCLAY JR Reason For Exam: RT. FOOT WOUND INFECTION Place consult to:: LEFT MESSAGE ON DR. JONAS WYLIE Notified:: LEFT MESSAGE ON DR. JONAS WYLIE Phone number called:: [phone] 03/10/17 17:52 Consult to Physician [CONS] Routine Consulting Provider: KERRY GIRARD Reason For Exam: RT. FOOT WOUND INFECTION Place consult to:: DR. CONN Notified:: DR. CONN Phone number called:: [phone] Was contact made?: Yes If yes, spoke with:: DR. CONN Time called:: 18:45 Comment:: MINNA NOTIFIED 03/11/17 00:02 Consult to Wound/ET Nurse [CONS] Routine Reason For Exam: wound eval 03/12/17 08:19 Consult to Wound/ET Nurse [CONS] Routine Reason For Exam: wound eval 03/12/17 11:11 Consult to Physician [CONS] Routine Consulting Provider: AVELINA KNIGHT Reason For Exam: right foot wound Place consult to:: General surgeon Notified:: office Phone number called:: [phone] Was contact made?: Yes If yes, spoke with:: MADELYN Time called:: 11:40 Hospitalization Reason for admission: Right foot ulcer, infected Condition: Stable Pertinent studies: Right SHIRLENE 0.91 Right ankle toe index 0.83 Hospital course: 61 y/o AAF with past medical history significant for PAD, HT admitted to the floor for the management of right foot ulcer. Patient has been complaining severe pain and discharge for the last 3 weeks. patient denied fever, chills. patient was started with antibiotics and ID was consulted and recommended to treat 7 days with PO levaquin. vascular surgery was consulted and did arterial duplex and recommended it is unlikely due to vascular insufficiency. wound care was consulted and scheduled O/P follow up appointment. Dr negron also saw her and recommend to follow as O/P. patient had skin flap done on the site of the lesion by Dr barclay and patient said she will see him as an O/P. There was a consult for Podiatry and plastic surgery both of them didn't show UP. Patient's pain showed some improvement and discharged with few pills of oxycodone with the advice to have follow up with PCP and all the scheduled appointments. Patient was hemodynamically stable at the time of discharge. Patient was given appropriate medication script. All her questions and concerns were addressed at the bedside. Disposition: DC-01 TO HOME OR SELFCARE Time spent for discharge: 31 minutes - Discharge Diagnoses (1) HTN (hypertension) Status: Chronic Qualifiers: Hypertension type: essential hypertension Qualified Code(s): I10 - Essential (primary) hypertension (2) Atherosclerosis of [place] arteries of the extremities with ulceration Status: Acute (3) Leg ulcer Status: Chronic Qualifiers: Laterality: right Non-pressure ulcer stage: limited to breakdown of skin Qualified Code(s): L97.911 - Non-pressure chronic ulcer of unspecified part of right lower leg limited to breakdown of skin (4) PAD (peripheral artery disease) Status: Chronic (5) Ulcer of leg, chronic, right Status: Chronic Qualifiers: Non-pressure ulcer stage: limited to breakdown of skin Qualified Code(s): L97.911 - Non-pressure chronic ulcer of unspecified part of right lower leg limited to breakdown of skin Core Measure Documentation - Palliative Care Palliative Care/ Comfort Measures: Not Applicable - Core Measures Any of the following diagnoses?: none Exam - Physical Exam Narrative exam: Not in cardiopulmonary distress. The patient appeared well nourished and normally developed. Vital signs as documented. Head exam is unremarkable. No scleral icterus . Neck is without jugular venous distension, thyromegaly, or carotid bruits. Lungs are clear to auscultation. Cardiac exam reveals regular rate and Rhythm. First and second heart sounds normal. No murmurs, rubs or gallops. Abdominal exam reveals normal bowel sounds, no masses, no organomegaly and no aortic enlargement. Extremities clean dressing on the right leg. [employer]: Alert and oriented 3. No focal weakness. - Constitutional Vitals: Temp Pulse Resp BP Pulse Ox 98.0 F 66 18 150/105 99 03/13/17 08:23 03/13/17 08:19 03/13/17 08:23 03/13/17 08:19 03/13/17 08:19 Plan Activity: advance as tolerated Weight Bearing Status: Weight Bear as Tolerated Diet: low cholesterol, low salt Follow up with: YAIR BURRELL MD [Other] - 7 Days AVELINA KNIGHT MD [Staff Physician] - 7 Days Prescriptions: RX: amLODIPine [Norvasc] 10 mg PO DAILY #30 tablet RX: Clindamycin [Clindamycin CAP] 300 mg PO Q8H #30 cap RX: Gabapentin [Neurontin] 300 mg PO BID #30 capsule RX: Losartan [Cozaar] 25 mg PO QDAY #30 tablet RX: oxyCODONE /ACETAMINOPHEN [Percocet 5/325 mg] 1 tab PO Q6HR PRN #12 tablet PRN Reason: Pain
--- NOTE | 2017-03-13 14:50 | Progress Note ---
Subjective Date of service: 03/13/17 Principal diagnosis: RLE Ulcers X 2 Interval history: Still c/o severe right foot pain, no fever. Microbiology: none Current Antimicrobials: clinda 03/10 levaquin 03/11 Previous Antimicrobials: Objective - Constitutional Vitals: Vital Signs Temp Pulse Resp BP Pulse Ox 98.0 F 66 18 150/105 99 03/13/17 08:23 03/13/17 08:19 03/13/17 08:23 03/13/17 08:19 03/13/17 08:19 Temperature -Last 24 Hours Temperature 98.0 F Temperature 98.1 F Temperature 98.3 F Temperature 99.0 F - Labs CBC & Chem 7: 03/11/17 06:18 03/12/17 09:16
--- NOTE | 2017-03-13 14:57 | Progress Note ---
Assessment and Plan Assessment: 1) Right foot venous ulcer - possibly infected. No evidence of arterial stenosis per art US and vascular. CRP=1.5 2) History of extensive right calf venous ulcer s/p grafting 3) History of PVD Plan: -wound care clinic f/u -stop clindamycin -continue levaquin change to po total 7 days I am signing off Thank you Dr Coulter for your consultation, will follow up with you. Arminda Hogan MD Infectious Diseases Specialist [facility] M [phone] O [phone] Subjective Date of service: 03/13/17 Principal diagnosis: RLE Ulcers X 2 Interval history: Still c/o right foot pain, no fever. Microbiology: none Current Antimicrobials: clinda 03/10 levaquin 03/11 Previous Antimicrobials: Objective - Exam Narrative Exam: General appearance: Alert in NAD, conversant Eyes: anicteric sclerae, moist conjunctivae; no lid-lag; PERRLA HENT: Atraumatic; oropharynx clear Neck: Trachea midline; supple, no thyromegaly or lymphadenopathy Lungs: CTA CV: RRR, no murmurs Abdomen: Soft, non-tender Extremities: right ankle old chronic skin changes and scattered skin openings no purulence. right dorsal forefoot area with large thick slough, very tender to palpation Skin: Normal temperature, turgor and texture; no rash, ulcers or subcutaneous nodules Psych: Appropriate affect, alert and oriented to person, place and time. Neuro: alert and oriented x 3. Moving all extermities Lines: No CVL / PICC - Constitutional Vitals: Vital Signs Temp Pulse Resp BP Pulse Ox 98.0 F 66 18 150/105 99 03/13/17 08:23 03/13/17 08:19 03/13/17 08:23 03/13/17 08:19 03/13/17 08:19 Temperature -Last 24 Hours Temperature 98.0 F Temperature 98.1 F Temperature 98.3 F Temperature 99.0 F - Labs CBC & Chem 7: 03/11/17 06:18 03/12/17 09:16
--- NOTE | 2017-03-13 16:46 | Progress Note ---
Assessment and Plan - Patient Problems (1) Atherosclerosis of [place] arteries of the extremities with ulceration Current Visit: No Status: Acute (2) Non-pressure ulcer of right lower extremity with fat layer exposed Current Visit: Yes Status: Acute Plan to address problem: 1) Pt is to be discharged today 2) Continue local wound care 3) Keep her right leg/foot elevated as much as possible 4) She has the number to the Wound Clinic and will make a f/u appointment. Subjective Date of service: 03/13/17 Patient Reports: Positive: no new complaints Objective Vital Signs - 12hr 03/13/17 03/13/17 08:19 08:23 Temperature 98.1 F 98.0 F Pulse Rate 66 Respiratory 16 18 Rate Blood Pressure 150/105 O2 Sat by Pulse 99 Oximetry - Integumentary other (RLE wounds were not re-examined.) - Labs 03/11/17 06:18 03/12/17 09:16
[2017-03-13 17:30] VITALS: BP 149/96
[2017-03-14] MEDS ORDERED: COZAAR PO SCH (10:00)
[2017-03-14] MEDS ORDERED: NORVASC PO SCH (10:00)
== END 2017-03-13 19:00 | disposition home or self-care (01) | DRG 301 ==
LOC: 3A 17:20 → UNDOADMIN 17:20 → 3A 17:49
PROVIDERS: ADMIT Internal Medicine; ATTEND Internal Medicine
PROC: 3E0234Z Introduction of Serum, Toxoid and Vaccine into Muscle, Percutaneous Approach (ICD-10-PCS; principal; 2017-03-11)
DX: I70.238 Atherosclerosis of native arteries of right leg with ulceration of other part of lower leg (principal); I10 Essential (primary) hypertension; G62.9 Polyneuropathy, unspecified; K21.9 Gastro-esophageal reflux disease without esophagitis; L97.519 Non-pressure chronic ulcer of other part of right foot with unspecified severity; Z23 Encounter for immunization; Z87.891 Personal history of nicotine dependence; Z88.5 Allergy status to narcotic agent; L97.911 Non-pressure chronic ulcer of unspecified part of right lower leg limited to breakdown of skin
CPT/HCPCS: 36415; 80048; 80053; 83036; 85025; 86140; 90471; 90686; 90732; 93922; 93925; G0008; G0009; J0360; J1170; J1956; J2405; J7030

== ENCOUNTER 2017-03-17 08:20 | Outpatient (CLI) | payer MEDICARE ==
[2017-03-17] MEDS ORDERED: XYLOCAINE TOPICAL 4% TP ONE ×3 (08:57→13:40)
== END 2017-03-17 08:21 | disposition home or self-care (01) ==
LOC: WOUND 08:20
PROVIDERS: ATTEND Surgery
DX: L97.512 Non-pressure chronic ulcer of other part of right foot with fat layer exposed (principal); I10 Essential (primary) hypertension; I73.9 Peripheral vascular disease, unspecified; Z87.891 Personal history of nicotine dependence; Z86.73 Personal history of transient ischemic attack (TIA), and cerebral infarction without residual deficits; Z90.89 Acquired absence of other organs
CPT/HCPCS: 11042; G0463

== ENCOUNTER 2017-03-25 13:12 | Outpatient (CLI) | payer MEDICARE ==
[2017-03-25] MEDS ORDERED: XYLOCAINE TOPICAL 4% TP ONE ×2 (13:51→13:59)
== END 2017-03-25 13:13 | disposition home or self-care (01) ==
LOC: WOUND 13:12
PROVIDERS: ATTEND Surgery
DX: L97.512 Non-pressure chronic ulcer of other part of right foot with fat layer exposed (principal); I10 Essential (primary) hypertension; I73.9 Peripheral vascular disease, unspecified; I87.2 Venous insufficiency (chronic) (peripheral); Z86.73 Personal history of transient ischemic attack (TIA), and cerebral infarction without residual deficits; Z87.891 Personal history of nicotine dependence

== ENCOUNTER 2017-04-01 09:16 | Outpatient (CLI) | payer MEDICARE ==
[2017-04-01] MEDS ORDERED: XYLOCAINE TOPICAL 4% TP ONE ×2 (09:31→09:37)
== END 2017-04-01 09:17 | disposition home or self-care (01) ==
LOC: WOUND 09:16
PROVIDERS: ATTEND Surgery
DX: L97.512 Non-pressure chronic ulcer of other part of right foot with fat layer exposed (principal); L97.811 Non-pressure chronic ulcer of other part of right lower leg limited to breakdown of skin; I10 Essential (primary) hypertension; I73.9 Peripheral vascular disease, unspecified; I87.2 Venous insufficiency (chronic) (peripheral); Z86.73 Personal history of transient ischemic attack (TIA), and cerebral infarction without residual deficits; Z87.891 Personal history of nicotine dependence; Z72.89 Other problems related to lifestyle

== ENCOUNTER 2017-04-08 13:11 | Outpatient (CLI) | payer MEDICARE ==
[2017-04-08] MEDS ORDERED: XYLOCAINE TOPICAL 4% TP ONE ×2 (13:29→13:37)
[2017-04-08] MEDS ORDERED: NACL 0.9% IR PRN (13:29)
[2017-04-08] MEDS ORDERED: NACL 0.9% 500 ML IR ONE (13:37)
== END 2017-04-08 13:12 | disposition home or self-care (01) ==
LOC: WOUND 13:11
PROVIDERS: ATTEND Surgery
DX: L97.512 Non-pressure chronic ulcer of other part of right foot with fat layer exposed (principal); I87.2 Venous insufficiency (chronic) (peripheral); I73.9 Peripheral vascular disease, unspecified; I10 Essential (primary) hypertension; Z86.73 Personal history of transient ischemic attack (TIA), and cerebral infarction without residual deficits; Z87.891 Personal history of nicotine dependence; Z72.89 Other problems related to lifestyle

== ENCOUNTER 2017-04-22 13:42 | Outpatient (CLI) | payer MEDICARE ==
[2017-04-22] MEDS ORDERED: XYLOCAINE TOPICAL 4% TP ONE ×2 (13:53→13:58)
== END 2017-04-22 13:43 | disposition home or self-care (01) ==
LOC: WOUND 13:42
PROVIDERS: ATTEND Surgery
DX: L97.512 Non-pressure chronic ulcer of other part of right foot with fat layer exposed (principal); I73.9 Peripheral vascular disease, unspecified; I87.2 Venous insufficiency (chronic) (peripheral); I10 Essential (primary) hypertension; Z86.73 Personal history of transient ischemic attack (TIA), and cerebral infarction without residual deficits; Z87.891 Personal history of nicotine dependence; Z72.89 Other problems related to lifestyle

== ENCOUNTER 2018-09-01 09:55 | Outpatient (CLI) | payer MEDICARE ==
[2018-09-01] MEDS ORDERED: XYLOCAINE TOPICAL 4% TP ONE (11:00)
[2018-09-02] MEDS ORDERED: AD OINTMENT TP SCH (11:00)
== END 2018-09-01 09:56 | disposition home or self-care (01) ==
LOC: WOUND 09:55
PROVIDERS: ATTEND Surgery
DX: I87.311 Chronic venous hypertension (idiopathic) with ulcer of right lower extremity (principal); L97.212 Non-pressure chronic ulcer of right calf with fat layer exposed; E11.51 Type 2 diabetes mellitus with diabetic peripheral angiopathy without gangrene; Z86.73 Personal history of transient ischemic attack (TIA), and cerebral infarction without residual deficits; Z87.891 Personal history of nicotine dependence
CPT/HCPCS: 11042; G0463; 99215

== ENCOUNTER 2018-09-08 10:02 | Outpatient (CLI) | payer MEDICARE ==
[2018-09-08] MEDS ORDERED: XYLOCAINE TOPICAL 4% TP ONE (11:00)
== END 2018-09-08 10:03 | disposition home or self-care (01) ==
LOC: WOUND 10:02
PROVIDERS: ATTEND Surgery
DX: I87.311 Chronic venous hypertension (idiopathic) with ulcer of right lower extremity (principal); L97.811 Non-pressure chronic ulcer of other part of right lower leg limited to breakdown of skin; L97.211 Non-pressure chronic ulcer of right calf limited to breakdown of skin; I73.9 Peripheral vascular disease, unspecified; Z86.73 Personal history of transient ischemic attack (TIA), and cerebral infarction without residual deficits; Z87.891 Personal history of nicotine dependence
CPT/HCPCS: 99214; G0463

== ENCOUNTER 2018-09-17 16:10 | Emergency (ER) | payer MEDICARE ==
[2018-09-17 16:26] VITALS: BP 164/104
== END 2018-09-17 16:30 | disposition left against medical advice (07) ==
LOC: ED 16:10
DX: I10 Essential (primary) hypertension (principal); Z53.21 Procedure and treatment not carried out due to patient leaving prior to being seen by health care provider

== ENCOUNTER 2020-07-19 19:59 | Observation (INO) | payer OTHER, MEDICARE ==
--- NOTE | 2020-07-19 21:01 | Event Note ---
ED Screening Note Date of service: 07/19/20 Time: 20:59 ED Screening Note: 64-year-old female patient presents to the emergency department with complaints of postsurgical bleeding starting today. Takes Plavix. Patient underwent angioplasty at a local vascular surgery center earlier today. Tonight, she began to notice profuse bleeding from the right femoral area. She did not call her surgeon prior to coming to the emergency department. She brought her surgeon's contact information and discharge instructions with her. General: Awake, appropriately interactive, no acute distress. Neck: Supple. Full range of motion intact. Cardiovascular: Normal peripheral perfusion. Pulmonary: No respiratory distress. Patient is speaking normally without use of accessory muscles. Skin: Postoperative dressing with blood noted to the right groin. Neurological: No facial asymmetry. Speech is clear. Follows commands. Patient is alert and oriented. Musculoskeletal: Moves all four extremities spontaneously with normal range of motion. Psych: Cooperative. Appropriate mood and affect. I have greeted and performed a focused rapid initial assessment of this patient. A comprehensive ED assessment and evaluation of the patient, analysis of all test results, and completion of the medical decision-making process will be conducted by additional ED providers. This initial assessment/diagnostic orders/clinical plan/treatment(s) is/are subject to change based on patients health status, clinical progression and re-assessment. Further treatment and workup at subsequent clinical provider's discretion. Patient/guardian urged not to elope from the ED as their condition may be serious if not clinically assessed and managed.
[2020-07-19 21:39] LABS: Basophils # (Auto) 0.1 K/mm3 (0.0-0.1); Basophils % (Auto) 0.9 % (0.0-1.8); Eosinophils # (Auto) 0.1 K/mm3 (0.0-0.4); Eosinophils % (Auto) 1.4 % (0.0-4.3); Hemoglobin 11.3 gm/dl (10.1-14.3); Lymphocytes # (Auto) 1.3 K/mm3 (1.2-5.4); Lymphocytes % (Auto) 17.5 % (13.4-35.0); Mean Corpuscular HGB Conc 33 % (30-34); Mean Corpuscular Volume 92 fl (79-97); Monocytes # (Auto) 0.6 K/mm3 (0.0-0.8); Monocytes % (Auto) 8.6 % (0.0-7.3); Platelet Count 351 K/mm3 (140-440); Red Blood Count 3.68 M/mm3 (3.65-5.03)
[2020-07-19 21:49] LABS: INR 0.97 (0.87-1.13)
[2020-07-19 21:50] LABS: Partial Thromboplastin Time 25.6 Sec. (24.2-36.6)
[2020-07-19 21:59] LABS: Alanine Aminotransferase 33 units/L (7-56); Albumin 4.2 g/dL (3.9-5); BUN/Creatinine Ratio 21; Blood Urea Nitrogen 17 mg/dL (7-17); Calcium 8.7 mg/dL (8.4-10.2); Hemolysis Index 2
[2020-07-20] MEDS ORDERED: ACETAMINOPHEN 325 MG TAB ONE (00:30)
[2020-07-20] MEDS ORDERED: ACETAMINOPHEN 325 MG TAB PO ONE (00:30)
--- NOTE | 2020-07-20 01:00 | Emergency Department Report ---
HPI - General Chief Complaint: Medical Clearance Time Seen by Provider: 07/20/20 00:41 - HPI HPI: Room 19 The patient is a 64-year-old female present with a chief complaint of bleeding from right groin surgical site. Patient states she had a vascular procedure this morning performed by Dr. Emerson where they "cleaned out her vessels." The patient states she went home and went to sleep and she awakened at 19: 00 in a puddle of blood. ED Past Medical Hx - Past Medical History Previous Medical History?: Yes Hx Hypertension: Yes (since the 80s) Hx GERD: Yes (Past hx) Additional medical history: Leg ulcer with vascular surgery, peripheral vascular disease - Surgical History Past Surgical History?: Yes Additional Surgical History: tonsillectomy; vascular surgery to RLE, LLE - Family History Family history: no significant - Social History Smoking Status: Former Smoker (None x6 years) Substance Use Type: None - Medications Home Medications: Home Medications Medication Instructions Recorded Confirmed Last Taken Type amLODIPine 10 mg PO DAILY #30 tablet 03/13/17 10/07/18 Unknown Rx HYDROcodone/APAP 5-325 [[place] 1 tab PO Q6H PRN 10/07/18 10/07/18 Unknown History 5-325 mg TAB] Losartan [Cozaar] 100 mg PO QDAY 10/07/18 10/07/18 Unknown History Pentoxifylline [TRENtal] 400 mg PO TID 10/07/18 10/07/18 Unknown History ED Review of Systems ROS: Stated complaint: SEVERE BLEEDING/POST SURGERY 07/19 Other details as noted in HPI Constitutional: no symptoms reported Eyes: denies: eye pain ENT: denies: throat pain Respiratory: no symptoms reported Cardiovascular: denies: chest pain Endocrine: no symptoms reported Gastrointestinal: denies: abdominal pain Genitourinary: denies: dysuria Musculoskeletal: denies: back pain Neurological: denies: headache Physical Exam - Physical Exam Vital Signs: Vital Signs 07/19/20 20:56 Temperature 97.9 F Pulse Rate 82 Respiratory 16 Rate Blood Pressure 147/93 [Right] O2 Sat by Pulse 100 Oximetry Physical Exam: GENERAL: The patient is well-developed well-nourished female lying on stretcher not appearing to be in acute distress. HEENT: Normocephalic. Atraumatic. Extraocular motions are intact. Patient has moist mucous membranes. NECK: Supple. Trachea midline CHEST/LUNGS: There is no respiratory distress noted. HEART/CARDIOVASCULAR: Regular. There is no tachycardia. 2+ DP bilateral lower extremity ABDOMEN: There is no abdominal distention. SKIN: There is slow oozing of blood from right groin surgical site. NEURO: The patient is awake, alert, and oriented. The patient is cooperative. The patient has no focal neurologic deficits. The patient has normal speech MUSCULOSKELETAL: There is no evidence of acute injury. ED Course Vital Signs 07/19/20 20:56 Temperature 97.9 F Pulse Rate 82 Respiratory 16 Rate Blood Pressure 147/93 [Right] O2 Sat by Pulse 100 Oximetry - Consultations Consultation #1: 07/20/20 00:58 Vascular surgery paged 07/20/20 01:[address] Clemons-agrees with pressure dressing and will admit patient for observation ED Medical Decision Making - Lab Data Result diagrams: 07/19/20 21:12 07/19/20 21:12 Laboratory Tests 07/19/20 07/19/20 07/19/20 21:12 21:12 21:12 WBC 7.3 RBC 3.68 Hgb 11.3 Hct 34.0 MCV 92 MCH 31 MCHC 33 RDW 14.0 Plt Count 351 Lymph % (Auto) 17.5 [place] % (Auto) 8.6 H Eos % (Auto) 1.4 Baso % (Auto) 0.9 Lymph # (Auto) 1.3 [place] # (Auto) 0.6 Eos # (Auto) 0.1 Baso # (Auto) 0.1 Seg Neutrophils % 71.6 H Seg Neutrophils # 5.3 PT 12.7 INR 0.97 APTT 25.6 Sodium 138 Potassium 3.7 Chloride 103.7 Carbon Dioxide 24 Anion Gap 14 BUN 17 Creatinine 0.8 Estimated GFR > 60 BUN/Creatinine Ratio 21 Glucose 115 H Calcium 8.7 Total Bilirubin 0.40 AST 30 ALT 33 Alkaline Phosphatase 82 Total Protein 7.3 Albumin 4.2 Albumin/Globulin Ratio 1.4 - Differential Diagnosis Postop bleed Critical care attestation.: If time is entered above; I have spent that time in minutes in the direct care of this critically ill patient, excluding procedure time. ED Disposition Clinical Impression: Post-op bleeding Disposition: OP ADMIT IP TO THIS HOSP Is pt being admited?: Yes Does the pt Need Aspirin: No Condition: Fair Referrals: JENNIFER CLEMONS MD [Primary Care Provider] - 3-5 Days Time of Disposition: 01:06 (Admitted by Dr. Clemons)
[2020-07-20] MEDS ORDERED: ONDANSETRON 4 MG/2 ML INJ IV ONE (01:09)
[2020-07-20] MEDS ORDERED: fentaNYL 100 MCG/2 ML INJ IV ONE (01:09)
[2020-07-20] MEDS ORDERED: ONDANSETRON 4 MG/2 ML INJ IV PRN (01:12)
[2020-07-20] MEDS ORDERED: ACETAMINOPHEN 325 MG TAB PO PRN (01:12)
[2020-07-20] MEDS: HYDROcodone/ACETAMINOPHEN 5-325 MG TAB PO PRN ×3 (03:08→14:54)
[2020-07-20 09:25] VITALS: BP 139/68
[2020-07-20] MEDS ORDERED: amLODIPine 10 MG TAB PO SCH (10:00)
[2020-07-20] MEDS ORDERED: LOSARTAN 50 MG TAB PO SCH (10:00)
--- NOTE | 2020-07-20 12:05 | Short Stay Summary ---
Short Stay Documentation Date of service: 07/20/20 Narrative H&P: The patient is a 64-year-old female with a history of peripheral vascular disease who underwent revascularization of her left lower extremity in the outpatient setting on 07/19/2020. She presented to the emergency department with complaints of oozing from her right groin access site. She states she was asleep and woke up with blood saturating her night close. She presented to the emergency department with those complaints. She denies any new pain but has complaints of left leg pain which she has been having associated with her left leg ulcers. She has no additional complaints at this time. - History Past Medical History: hypertension, hyperlipidemia, PVD Past Surgical History: Other (Revascularization of bilateral lower extremities, debridement of ulcers on bilateral lower extremities) - Allergies and Medications Current Medications: Allergies tramadol Allergy (Verified 10/07/18 18:02) Itching Home Medications Medication Instructions Recorded Confirmed Last Taken Type HYDROcodone/APAP 5-325 [[place] 1 tab PO Q6H PRN 10/07/18 07/20/20 07/20/20 History 5-325 mg TAB] Losartan [Cozaar] 100 mg PO QDAY 10/07/18 07/20/20 07/19/20 History Aspirin [Adult Aspirin] 81 mg PO DAILY 07/20/20 07/20/20 07/19/20 History Active Medications Acetaminophen (Acetaminophen 325 Mg Tab) 650 mg PO Q4H PRN PRN Reason: Pain MILD(1-3)/Fever >100.5/[place] Hydrocodone Bitart/Acetaminophen (Hydrocodone/Acetaminophen 5-325 Mg Tab) 2 each PO Q6H PRN PRN Reason: Pain, Moderate (4-6) Last Admin: 07/20/20 08:40 Dose: 2 each Documented by: Amlodipine Besylate (Amlodipine 10 Mg Tab) 10 mg PO DAILY [facility] Last Admin: 07/20/20 09:21 Dose: 10 mg Documented by: Losartan Potassium (Losartan 50 Mg Tab) 100 mg PO QDAY [facility] Last Admin: 07/20/20 09:23 Dose: 100 mg Documented by: Ondansetron HCl (Ondansetron 4 Mg/2 Ml Inj) 4 mg IV Q8H PRN PRN Reason: Nausea And Vomiting Pentoxifylline (Pentoxifylline Er 400 Mg Tab) 400 mg PO TID [facility] Sodium Chloride (Sodium Chloride 0.9% 10 Ml Flush Syringe) 10 ml IV BID [facility] Last Admin: 07/20/20 09:20 Dose: 10 ml Documented by: Sodium Chloride (Sodium Chloride 0.9% 10 Ml Flush Syringe) 10 ml IV PRN PRN PRN Reason: LINE FLUSH - Physical exam General appearance: no acute distress Lungs: Normal air movement Breasts: deferred Gastrointestinal: normal Rectal Exam: deferred Extremities: normal temperature, abnormal (Right groin with no palpable pulsatile mass and slow ooze from puncture site of the right femoral artery.) - Hospital course Hospital course: A right femoral artery duplex was performed and revealed a patent right common femoral artery with a patent SFA and profunda artery. There was no evidence of pseudoaneurysm formation. There was no evidence of a surrounding hematoma. The bleeding was superficial and associated with the skin edges likely secondary to her Plavix. The wound edges were held together and then treated with Dermabond which stopped the bleeding. A sterile dressing was then applied over the Dermabond with a Telfa and Tegaderm. The patient is otherwise doing well and clinically ready for discharge to home. - Disposition Condition at discharge: Good Disposition: DC-01 TO HOME OR SELFCARE Short Stay Discharge Plan Activity: other (No strenuous activity for 48 hours) Wound: remove dressing (Okay to remove the dressing in 48 hours. Okay to shower in 48 hours but do not soak in water for 2 weeks.) Follow up with: KERRY GIRARD MD [Staff Physician] - 14 Days
[2020-07-20] MEDS: PENTOXIFYLLINE ER 400 MG TAB PO SCH ×2 (15:07)
--- NOTE | 2020-07-20 15:29 | Vascular Lab Report ---
ULTRASOUND LOWER EXTREMITY ARTERIAL DOPPLER, RIGHT INDICATION: bleeding R groin after LLE angiogram R/O pseudoane FINDINGS: Right Leg Arterial Systolic Velocities (cm/sec): CEMENT [employer] = 80.0 cm/s SFA proximal = 88 cm/s SFA mid = 149 cm/s SFA distal = 107 cm/s Popliteal = 120 cm/s No evidence of a single aneurysm IMPRESSION: 1. No evidence of pseudoaneurysm or obvious extravasation Signer Name: Thierry Vaz MD Signed: 07/20/2020 3:24 PM Workstation Name: [id number]
== END 2020-07-20 16:50 | disposition home or self-care (01) ==
LOC: ED 19:59 → 3A 07-20 01:13
PROVIDERS: ADMIT Surgery Vascular Surgery; ATTEND Surgery Vascular Surgery
DX: L76.22 Postprocedural hemorrhage of skin and subcutaneous tissue following other procedure (principal); M79.662 Pain in left lower leg; I10 Essential (primary) hypertension; E78.5 Hyperlipidemia, unspecified; I73.9 Peripheral vascular disease, unspecified; K21.9 Gastro-esophageal reflux disease without esophagitis; Z79.82 Long term (current) use of aspirin; Z98.890 Other specified postprocedural states; Z90.49 Acquired absence of other specified parts of digestive tract; Z87.891 Personal history of nicotine dependence
CPT/HCPCS: 36415; 80053; 85025; 85610; 85730; 86850; 86900; 86901; 93926; 96374; 96375; 99284; G0378; J2405; J3010